=== PATIENT | male | born 1955 | race Caucasian/White ===

== ENCOUNTER 2024-02-19 09:05 | Emergency (ER) | payer OTHER, SELFPAY ==
--- NOTE | 2024-02-19 09:14 | ED.GENMED ---
History of Present Illness
General
Chief Complaint: Skin Problem
Time Seen by Provider: 02/19/24 09:09
History of Present Illness
History of Present Illness:
HPI: [facility] to concerns that wound care nurse practitioner, Rolly Castillo NP (saw pt over last several months), reportedly was concerned about infection. It is unclear how long the
wound has been there but according to documentation from the facility this is noted 3 months ago. EMS indicates that rehab facility and wound care nurse practitioner was concerned for infection and was sent here for further evaluation. The patient
denies any chills or fevers. He reports rather significant pain at the site. I called [facility] Blanchard, at - wound since at least November - wound was greatly improving until this past week, could 'see bone' which is new, WBC was going up and 'showing
anemia', lost 2 lbs, Ensure overnight x2 via PEG, ID wouldn't see him and staff at wanted more urgent eval in ED.
EXAM:
GENERAL: Appears generally weak and debilitated
HEENT: Moist oral mucosa
CARDIOVASCULAR: No murmurs, normal heart rate, regular rhythm, No chest wall tenderness
PULMONARY: No respiratory distress, breath sounds are clear and equal
ABDOMEN: Soft with no peritoneal signs, no tenderness
NEUROLOGIC: Fair strength all extremities, no coordination deficits, mild dysarthria
BACK: There is a 6 x 6 cm stage IV sacral decubitus ulcer with no obvious pus or foul-smelling odor
PSYCHIATRIC: Appropriate mental status, reasonable insight and judgement with some mild cognitive deficits
EXTREMITIES: Nontender, no edema, moves all extremities equally
SKIN: Appears pale
TIME OF INITIAL ENCOUNTER: 9:05 AM
NUMBER AND COMPLEXITY OF PROBLEMS ADDRESSED AT THE ENCOUNTER
� Chronic conditions affecting care: Cognitive communication deficit, history of nontraumatic subarachnoid hemorrhage, chronic pain syndrome, hyperlipidemia
� Acute Exacerbation and/or Progression of Chronic Illness:
� Differential Diagnosis includes: Wound infection, osteomyelitis, progression of wound
AMOUNT AND/OR COMPLEXITY OF DATA TO BE REVIEWED AND ANALYZED
� I performed an independent evaluation of and my interpretation is:
EKG:
CT: CT imaging shows osseous destruction of the coccyx suggesting osteomyelitis
X-rays:
Laboratory Studies: White count and lactic are both normal
Other:
� Review of other/old records: Included records from the facility indicate that the white count on 02/09 was 9.1 and hemoglobin was 9.6.
� Clinical information was obtained by an independent historian: I spoke to EMS for history�see above
� Prescriptions/Medications Considered but not given: Considered IV antibiotics however in discussion with internal medicine Dr. Scott as well as Dr. Yan, KEVIN, both are in agreement to hold off on any antibiotics but recommend
increase wound care/offloading.
� Further testing considered but not performed:
RISK OF COMPLICATIONS AND/OR MORBIDITY OR MORTALITY OF PATIENT MANAGEMENT
� Social determinants of health affecting care: Currently staying at [facility]
� Discussion with other providers: See below and above: I also spoke to Dr. Kauffman and who indicates that he would be willing to see as an outpatient to arrange further management.
� Escalation of care including admission/observation vs risk of discharge considered: Given the concerns reported from the facility, will obtain labs. I also obtained wound culture. I called [facility] Blanchard, at - wound since at
least November - wound was greatly improving until this past week, could 'see bone' which is new, WBC was going up and 'showing anemia', lost 2 lbs, Ensure overnight x2 via PEG, ID wouldn't see him and staff at wanted more urgent eval in ED.
Phy Exam
Physical Exam
Physical Exam:
See HPI
Course
Orders/Labs/Results
Orders:
Orders
02/19/24 09:09
CT Pelvis W/o Iv Contrast Urgent
Comment:
Reason For Exam: sacral wound worsening; eval for osteo
02/19/24 09:17
HYDROmorphone [Dilaudid] 1 mg IV NOW STA
Ondansetron Injectable [Zofran] 4 mg IV NOW STA
02/19/24 09:24
CR Humerus - Left Min 2 Views* Urgent
Comment:
Reason For Exam: pain prox mid L humerus
02/19/24 09:30
Basic Metabolic Panel Urgent
Complete Blood Count/With Diff Urgent
Lactic Acid Q4H
Comment: CANCEL 2nd LACTIC ACID IF 1st LACTIC ACID IS LESS THAN 2
Blood Culture Q30M
MAYELIN Source: Blood/Venous
Specimen Description:
Wound Culture [Wound/Abscess/Other Culture] Urgent
MAYELIN Source: Decubitis Ulcer
Specimen Description:
Date Specimen was Collected: 02/19/24
Time Specimen was Collected: 09:16
02/19/24 09:35
0.9% Sodium Chloride 1000 ml [Nss] 1,000 ml IV BOLUS
02/19/24 09:54
Blood Culture Q30M
MAYELIN Source: Blood/Venous
Specimen Description:
02/19/24 11:20
Piperacillin/Tazo 3.375 Gram [Zosyn] 3.375 gram in 50 ml IV NOW
02/19/24 12:00
VANCOMYCIN Pharmacy to Dose [VANCOCIN Pharmacy to Dose] 1 each Pharmacy To Prepare [Call Pharmacy To Prepare] 0 ml IV PER PROTOCOL
Abnormal Lab Results
02/19/24
09:30
RBC 3.83 L 10^6/uL
(4.70-6.10)
Hgb 10.7 L g/dL
(13.0-18.0)
Hct 33.2 L %
(39.0-52.0)
MCHC 32.2 L g/dL
(33.0-37.0)
RDW 15.9 H %
(11.5-14.5)
MPV 10.6 H fL
(7.4-10.4)
Lymphocytes % 19.1 L %
(20.5-51.1)
Chloride 96 L mmol/L
(98-107)
Carbon Dioxide 32 H mmol/L
(22-30)
BUN 28 H mg/dl
(9-20)
Glucose 161 H mg/dl
(70-99)
02/19/24 09:30
02/19/24 09:30
Vital Signs
Initial and Last Documented VS:
Initial Vital Signs
Temp Pulse Resp BP Pulse Ox
99.1 F 55 18 129/68 95
02/19/24 09:20 02/19/24 09:20 02/19/24 09:20 02/19/24 09:20 02/19/24 09:20
Last Documented Vital Signs
Temp Pulse Resp BP Pulse Ox
99.1 F 55 18 119/60 96
02/19/24 09:20 02/19/24 12:00 02/19/24 09:20 02/19/24 10:00 02/19/24 12:00
*Critical Care Note
Total Time (30-74mins, 75-104mins- exclusive of procedures): Not Applicable
ED Attending Note
-
Portions of this chart may have been created with voice recognition software.� Occasional wrong word or��sound alike� substitutions may have occurred due to the inherent limitations of voice recognition software.
Discharge Plan
Departure
Patient Disposition: Home (Routine Discharge)
Date of Disposition: 02/19/24
Time of Disposition: 11:20
Patient with high blood pressure during this ER visit?: Yes
Discharge Problem:
Sacral wound
Instructions: Wound Care (DC)
Prescriptions:
No Action
atorvastatin 40 mg Tablet
40 mg PO HS
metformin 500 mg Tablet
500 mg PO BID
sennosides [senna] 8.6 mg Tablet
8.6 mg PO HS
acetaminophen [Tylenol] 325 mg Tablet
650 mg PO Q4HPRN PRN (Reason: mild pain)
venlafaxine 75 mg Tablet
75 mg PO DAILY
insulin glargine 100 unit/mL Solution
16 unit SC HS
flecainide 150 mg Tablet
150 mg PO Q12H
polyethylene glycol 3350 [Miralax] 17 gram Powder In Packet
17 g PO DAILYPRN PRN (Reason: constipation)
miconazole nitrate [Micatin] 2 % Cream
1 applic TOPICAL BID
Rx Instructions:
apply to groin and sacrum
acarbose 50 mg Tablet
50 mg PO BID
Theragen Tablet
1 tab PO DAILY
magnesium hydroxide [Milk of Magnesia] 400 mg/5 mL Suspension
30 ml PO P85PVAS PRN (Reason: no bm for 3 days)
tamsulosin [Flomax] 0.4 mg Capsule
0.4 mg PO HS
bisacodyl [Dulcolax (bisacodyl)] 10 mg Suppository
10 mg [place] DAILYPRN PRN (Reason: if mom ineffective after 24 hours)
ibuprofen 400 mg Tablet
400 mg PO Q6HPRN PRN (Reason: mild pain)
Fleet Enema 19-7 gram/118 mL Enema
118 ml [place] DAILYPRN PRN (Reason: if dulcolax ineffective after 24 hours)
gabapentin 300 mg Capsule
300 mg PO TID
metoprolol succinate 25 mg Tablet Extended Release 24 Hr
25 mg PO DAILY
alum-mag hydroxide-simeth [Mag-Al Plus] 200-200-20 mg/5 mL Suspension
15 ml PO QIDPRN PRN (Reason: indigestion)
albuterol sulfate [Ventolin HFA] 90 mcg/actuation Hfa Aerosol Inhaler
2 puff INHALATION R Q6HPRN PRN (Reason: asthma)
diltiazem HCl 30 mg Tablet
30 mg PO QID
ondansetron 4 mg Tablet,Disintegrating
4 mg PO Q8HPRN PRN (Reason: nausea/vomiting)
insulin aspart U-100 [Novolog FlexPen U-100 Insulin] 100 unit/mL (3 mL) Insulin Pen
6 unit SC ACHS
Rx Instructions:
sliding scale: 150-200=2u,201-250=4u,251-300=6u,301-350=8u,351-400=10u
mirtazapine 7.5 mg Tablet
7.5 mg PO HS
morphine 20 mg Capsule,Extend.Release Pellets
20 mg PO Q12H
cholecalciferol (vitamin D3) 1,250 mcg (50,000 unit) Capsule
1,250 mcg PO SA
oxycodone 10 mg Tablet
10 mg PO Q4HPRN PRN (Reason: severe pain)
pantoprazole [address] For Susp In Packet
40 mg feeding tube BID
melatonin 5 mg Tablet
5 mg PO HS
zinc oxide 12 % Cream
1 applic TOPICAL BID
Rx Instructions:
apply to sacrum and buttocks
Dakin's Solution 0.25 % Solution
1 applic TOPICAL BID
Dakin's Solution 0.25 % Solution
1 applic TOPICAL BIDPRN PRN (Reason: SACRAL WOUND)
Referrals:
Shaheed Gregory MD [Family Provider] -
J Luis Peck MD [Active] - Follow up in 2-3 days
Activity Restrictions/Additional Instructions:
White blood cell count is normal, lactic acid is normal, CT imaging shows 'osseous destruction of the coccyx suggesting osteomyelitis'�I spoke to an infectious disease doctor, Dr. Yan who recommends against antibiotics but encourages increased
wound care with possible flap as outpatient. I also spoke to Dr. Peck, one of our industrial specialist. He indicated that he also would be okay with outpatient management. He said they would be willing to begin a treatment plan and asked
that Solomon Love set up an appointment for him as an outpatient.
Interventions
Interventions:
*Risk Screen - Suicide Last Done: 02/19/24 10:27
*General Assessment Last Done: 02/19/24 09:37
*Neglect/Abuse Screening Last Done: 02/19/24 10:27
ED-Skin Assessment Last Done: 02/19/24 09:30
Discharge Date and Time
Print Language: [id number]
[2024-02-19 09:20] VITALS: BP 129/68
[2024-02-19 09:36] VITALS: BMI 20.7
[2024-02-19 09:55] LABS: % Basophils 0.5 % (0-2); % Eosinophils 2.9 % (0-6); % Immature Granulocytes 0.3 % (0-0.5); % Lymphocytes 19.1 % (20.5-51.1); % Monocytes 4.6 % (1.7-9.3); % Neutrophils 72.6 % (42.2-75.2); Absolute Eosinophils 0.2 10^3/uL (0-0.7); Absolute Lymphocytes 1.5 10^3/uL (1.2-3.4); Absolute Monocytes 0.4 10^3/uL (0.1-0.6); Absolute Neutrophils 5.6 10^3/uL (1.4-6.5); Hematocrit 33.2 % (39.0-52.0); Hemoglobin 10.7 g/dL (13.0-18.0); Mean Corp Hgb Conc. 32.2 g/dL (33.0-37.0); Mean Corpuscular Hgb 27.9 pg (27.0-31.0); Mean Corpuscular Volume 86.7 fL (80.0-94.0); Mean Platelet Volume 10.6 fL (7.4-10.4); Nucleated Red Blood Cells % 0 % (-); Platelet Count 225 10^3/uL (130-400); Red Blood Cell Count 3.83 10^6/uL (4.70-6.10); Red Cell Dist. Width 15.9 % (11.5-14.5); White Blood Cell Count 7.6 10^3/uL (4.8-10.8)
[2024-02-19 10:00] VITALS: BP 119/60
[2024-02-19 10:02] LABS: Lactic Acid 1.6 mmol/L (0.7-2.0)
[2024-02-19 10:13] LABS: Blood Urea Nitrogen 28 mg/dl (9-20); Calcium 9.6 mg/dl (8.4-10.2); Carbon Dioxide 32 mmol/L (22-30); Chloride 96 mmol/L (98-107); Estimated Creatinine Clearance 115 ml/min; Glucose 161 mg/dl (70-99); Potassium 4.6 mmol/L (3.5-5.1); Sodium 137 mmol/L (135-145); eGFR > 60.00
[2024-02-19] MEDS: NSS 1000 IV (10:56)
[2024-02-19 12:10] VITALS: BP 122/66
[2024-02-19 12:30] VITALS: BP 134/68
== END 2024-02-19 13:00 | disposition home or self-care (01) ==
LOC: EMR 09:05
PROVIDERS: EMERGENCY PHYSICIAN Emergency Medicine; FAMILY PHYSICIAN Internal Medicine
DX: L89.154 Pressure ulcer of sacral region, stage 4 (principal); M79.622 Pain in left upper arm; M53.3 Sacrococcygeal disorders, not elsewhere classified; R53.1 Weakness; R03.0 Elevated blood-pressure reading, without diagnosis of hypertension; R47.1 Dysarthria and anarthria; R41.841 Cognitive communication deficit; E78.5 Hyperlipidemia, unspecified; G89.4 Chronic pain syndrome; Z87.820 Personal history of traumatic brain injury
CPT/HCPCS: 99284; 96360; 72192; 73060; 80048; 83605; 85025; 87040; 87070; 87071; 87186; 87205